=== PATIENT | male | born 1940 | race Caucasian/White ===

== ENCOUNTER → 2019-08-30 | Emergency (ER) | payer OTHER ==
[~2019-08-30] VITALS: Ht 172.7 cm; Wt 71.7 kg
[~2019-08-30] MED LIST: SODIUM CHLORIDE 0.9% 1,000 ML IV ONE
[2019-08-30 07:22] LABS: Basophils # (auto) 0 10 ^3/uL (0-0.2); Basophils % (auto) 0.4 % (0.0-2.0); Eosinophils # (auto) 0 10 ^3/uL (0-0.8); Eosinophils % (auto) 0.5 % (0.0-7.0); Hematocrit 40.5 % (41.0-53.0); Lymphocytes # (auto) 0.7 10 ^3/uL (0.4-5.4)
[2019-08-30 07:24] LABS: Lymphocytes % (auto) 9.2 % (10.0-50.0); Mean Corpuscular Hemoglobin 34.9 pg (28.0-32.0); Mean Corpuscular Hgb Conc. 34.6 g/dL (32.0-36.0); Mean Corpuscular Volume 101.1 fL (80.0-100.0); Monocytes # (auto) 0.5 10 ^3/uL (0-1.3); Monocytes % (auto) 6.5 % (0.0-12.0); Neutrophils # (auto) 6.7 10 ^3/uL (1.6-8.6); Neutrophils % (auto) 83.4 % (37.0-80.0); Nucleated Red Blood Cells % 0.1 %; Platelet Count (auto) 172 10^3/uL (140-450); Red Cell Distribution Width 13.5 % (11.8-14.3)
[2019-08-30 07:37] LABS: INR 1.17 (0.9-1.15); Partial Thromboplastin Time 29.9 sec (23.64-32.05)
[2019-08-30 07:41] LABS: Alanine Aminotransferase 22 U/L (16-61); Albumin 3.5 g/dL (3.4-5.0); Anion Gap 10 (5-15); Aspartate Aminotransferase 17 U/L (15-37); BUN/Creatinine Ratio 20.9; Blood Urea Nitrogen 19 mg/dL (7-18); Calcium 8.7 mg/dL (8.5-10.1); Carbon Dioxide 21 mmol/L (21-32); Chloride 102 mmol/L (98-107); GFR African American 104 mL/min; GFR Non-African American 86 mL/min; Glucose 119 mg/dL (74-106); Sodium 133 mmol/L (136-145)
[2019-08-30 07:45] LABS: Alkaline Phosphatase 94 U/L (45-117); Bilirubin, Total 1.2 mg/dL (0.2-1.0); Total Protein 6.3 g/dL (6.4-8.2)
[2019-08-30 08:52] LABS: Urine WBC None Seen /hpf (0 - 3)
[2019-08-30 08:55] LABS: Urine Bacteria NONE SEEN /hpf (None Seen); Urine Blood Negative /uL (Negative); Urine Mucus FEW (None Seen); Urine Specific Gravity 1.009 (1.001-1.035)
[2019-08-30 09:08] VITALS: BP 150/84
== END | disposition home or self-care (01) ==
LOC: EDBD 06:42 → ER 06:42
DX: S06.5X1A Traumatic subdural hemorrhage with loss of consciousness of 30 minutes or less, initial encounter (principal); R60.0 Localized edema; D75.89 Other specified diseases of blood and blood-forming organs; R53.1 Weakness; R55 Syncope and collapse; X58.XXXA Exposure to other specified factors, initial encounter; Y93.89 Activity, other specified; Y92.89 Other specified places as the place of occurrence of the external cause; Y99.8 Other external cause status
CPT/HCPCS: 36415; 70450; 71045; 80053; 81001; 83605; 83735; 83880; 84484; 85025; 85610; 85730; 86850; 86900; 86901; 96360; 99285; J7030

== ENCOUNTER 2019-09-23 07:49 | Inpatient (IN) | payer OTHER ==
[~2019-09-23] VITALS: Ht 172.7 cm; Wt 76.9 kg
[2019-09-23] MEDS: SODIUM CHLORIDE 0.9% 1,000 ML IV SCH ×2 (00:15→15:05)
[2019-09-23 08:35] LABS: Basophils # (auto) 0.1 10 ^3/uL (0-0.2); Eosinophils # (auto) 0 10 ^3/uL (0-0.8); Hemoglobin 14.5 g/dL (13.5-17.5); Lymphocytes # (auto) 0.2 10 ^3/uL (0.4-5.4); Mean Corpuscular Hgb Conc. 33.1 g/dL (32.0-36.0); Monocytes # (auto) 0.9 10 ^3/uL (0-1.3); Red Blood Cells 4.28 10^6/uL (4.5-5.90)
[2019-09-23 08:37] LABS: Basophils % (auto) 0.5 % (0.0-2.0); Hematocrit 43.7 % (41.0-53.0); Lymphocytes % (auto) 1.1 % (10.0-50.0); Mean Corpuscular Hemoglobin 33.8 pg (28.0-32.0); Mean Corpuscular Volume 102.1 fL (80.0-100.0); Neutrophils # (auto) 20.7 10 ^3/uL (1.6-8.6); Neutrophils % (auto) 94.4 % (37.0-80.0); Platelet Count (auto) 131 10^3/uL (140-450)
[2019-09-23] MEDS ORDERED: SODIUM CHLORIDE 0.9% 1,000 ML IV ONE ×5 (08:45→17:00)
[2019-09-23 08:49] LABS: Albumin 2.7 g/dL (3.4-5.0); Anion Gap 13 (5-15); Blood Urea Nitrogen 34 mg/dL (7-18); Calcium 8.9 mg/dL (8.5-10.1); Carbon Dioxide 18 mmol/L (21-32); Chloride 101 mmol/L (98-107); Glucose 124 mg/dL (74-106); Magnesium 2.4 mg/dL (1.6-2.6); Potassium 4.9 mmol/L (3.5-5.1); Sodium 132 mmol/L (136-145)
[2019-09-23 08:50] LABS: INR 1.21 (0.9-1.15); Partial Thromboplastin Time 31.8 sec (23.64-32.05)
[2019-09-23 08:55] LABS: Alanine Aminotransferase 23 U/L (16-61); Alkaline Phosphatase 125 U/L (45-117); Aspartate Aminotransferase 11 U/L (15-37); BUN/Creatinine Ratio 20.1; GFR African American 51 mL/min; GFR Non-African American 42 mL/min; Total Protein 6.1 g/dL (6.4-8.2)
[2019-09-23] MEDS ORDERED: cefTRIAXone 1GM/50ML D5W 50 ML IV ONE (10:15)
[2019-09-23 11:21] LABS: Lactic Acid w/Reflex 5.1 mmol/L (0.4-2.0)
[2019-09-23] MEDS ORDERED: SODIUM CHLORIDE 0.9% 2,150 ML IV ONE (11:45)
[2019-09-23 12:15] LABS: Urine Bacteria MANY /hpf (None Seen); Urine Blood 1+ /uL (Negative); Urine Mucus FEW (None Seen); Urine Specific Gravity 1.021 (1.001-1.035); Urine WBC 831 /hpf (0 - 3); Urine WBC Clumps PRESENT /hpf (None Seen)
[2019-09-23] MEDS ORDERED: MORPHINE SULF INJ 2 MG/ML SYRINGE 1ML IV PRN (13:15)
[2019-09-23] MEDS ORDERED: NITROGLYCERIN 0.4 MG SL TAB SL PRN (13:15)
[2019-09-23] MEDS ORDERED: ONDANSETRON HCL 4 MG/2 ML VIAL IV PRN (14:00)
[2019-09-23] MEDS ORDERED: LORazepam 0.5 MG TAB PO PRN (14:00)
[2019-09-23] MEDS ORDERED: PIPERACILLIN-TAZOB 3.375GM 100 ML IV ONE (14:00)
[2019-09-23] MEDS ORDERED: traMADol HCL 50 MG TAB PO PRN (14:00)
[2019-09-23 14:27] LABS: CRP High Sensitivity 13.2 mg/dL (< 0.3)
[2019-09-23] MEDS: ACETAMINOPHEN 500 MG TAB PO PRN ×2 (14:27→20:46)
[2019-09-23] MEDS ORDERED: NOREPINEPHRINE 8 MG/250ML KIT 250 ML IV SCH (15:46)
[2019-09-23] MEDS ORDERED: NOREPINEPHRINE 8 MG/250ML KIT 250 ML IV ONE (15:54)
[2019-09-23] MEDS: NOREPINEPHRINE 8 MG/250ML KIT 250 ML IV SCH (16:11)
[2019-09-23] MEDS ORDERED: ACETAMINOPHEN 500 MG TAB PO ONE (17:00)
[2019-09-23] MEDS: PIPERACILLIN-TAZOB 3.375GM 100 ML IV SCH (20:45)
[2019-09-24] MEDS: PIPERACILLIN-TAZOB 3.375GM 100 ML IV SCH ×4 (02:24→19:40)
[2019-09-24] MEDS: ACETAMINOPHEN 500 MG TAB PO PRN ×2 (02:59→10:15)
[2019-09-24 05:52] LABS: Eosinophils # (auto) 0 10 ^3/uL (0-0.8); Eosinophils % (auto) 0.1 % (0.0-7.0); Lymphocytes # (auto) 0.1 10 ^3/uL (0.4-5.4); Monocytes # (auto) 0.5 10 ^3/uL (0-1.3); Platelet Count (auto) 70 10^3/uL (140-450); White Blood Cell 13.4 10^3/uL (4.4-10.8)
[2019-09-24 05:54] LABS: Basophils # (auto) 0 10 ^3/uL (0-0.2); Basophils % (auto) 0.3 % (0.0-2.0); Hematocrit 35.1 % (41.0-53.0); Hemoglobin 11.8 g/dL (13.5-17.5); Mean Corpuscular Hemoglobin 34.3 pg (28.0-32.0); Mean Corpuscular Hgb Conc. 33.6 g/dL (32.0-36.0); Mean Corpuscular Volume 102.2 fL (80.0-100.0); Monocytes % (auto) 3.5 % (0.0-12.0); Neutrophils # (auto) 12.7 10 ^3/uL (1.6-8.6); Neutrophils % (auto) 95.1 % (37.0-80.0); Red Blood Cells 3.43 10^6/uL (4.5-5.90)
[2019-09-24 06:19] LABS: Albumin 1.8 g/dL (3.4-5.0); Calcium 7.3 mg/dL (8.5-10.1); Potassium 3.8 mmol/L (3.5-5.1)
[2019-09-24 06:22] LABS: Bilirubin, Total 0.6 mg/dL (0.2-1.0); Total Protein 4.5 g/dL (6.4-8.2)
[2019-09-24] MEDS: NOREPINEPHRINE 8 MG/250ML KIT 250 ML IV SCH ×2 (09:14→19:00)
[2019-09-24] MEDS: SODIUM CHLORIDE 0.9% 1,000 ML IV SCH (10:08)
[2019-09-24] MEDS ORDERED: PANTOPRAZOLE 40 MG TAB PO ONE (13:45)
[2019-09-24] MEDS ORDERED: ALUM & MAG HYDROX-SIMETH LIQ(MAALOX) 30 ML PO ONE (13:45)
[2019-09-24] MEDS: PANTOPRAZOLE 40 MG TAB PO SCH (14:15)
[2019-09-24] MEDS ORDERED: SODIUM CHLORIDE 0.9% 1,000 ML IV ONE (14:15)
[2019-09-24] MEDS ORDERED: METO25TA5 PO (15:24)
[2019-09-24] MEDS ORDERED: LEVE100012 PO (15:24)
[2019-09-24] MEDS ORDERED: CALCTAB25 PO (15:24)
[2019-09-24] MEDS ORDERED: TRAM50TA2 PO (15:24)
[2019-09-24] MEDS ORDERED: ASPI-231 PO (15:24)
[2019-09-24] MEDS ORDERED: CHOL20007 PO (15:24)
[2019-09-24] MEDS ORDERED: DOCU100T15 PO (15:24)
[2019-09-24] MEDS ORDERED: ATOR10TA52 PO (15:24)
[2019-09-24 18:28] LABS: Basophils # (auto) 0 10 ^3/uL (0-0.2); Eosinophils # (auto) 0.1 10 ^3/uL (0-0.8); Lymphocytes # (auto) 0.1 10 ^3/uL (0.4-5.4); Monocytes # (auto) 0.3 10 ^3/uL (0-1.3); Monocytes % (auto) 4.2 % (0.0-12.0)
[2019-09-24 18:30] LABS: Basophils % (auto) 0.1 % (0.0-2.0); Eosinophils % (auto) 1.3 % (0.0-7.0); Hematocrit 36.1 % (41.0-53.0); Hemoglobin 12.1 g/dL (13.5-17.5); Mean Corpuscular Hemoglobin 34.2 pg (28.0-32.0); Mean Corpuscular Hgb Conc. 33.6 g/dL (32.0-36.0); Mean Corpuscular Volume 101.8 fL (80.0-100.0); Neutrophils # (auto) 7.5 10 ^3/uL (1.6-8.6); Neutrophils % (auto) 93.4 % (37.0-80.0); Nucleated Red Blood Cells % 0.1 %; Platelet Count (auto) 63 10^3/uL (140-450); Red Blood Cells 3.54 10^6/uL (4.5-5.90); Red Cell Distribution Width 13.2 % (11.8-14.3); White Blood Cell 8.1 10^3/uL (4.4-10.8)
[2019-09-24 18:44] LABS: INR 1.22 (0.9-1.15)
[2019-09-24 18:55] LABS: Albumin 1.8 g/dL (3.4-5.0); Calcium 7.4 mg/dL (8.5-10.1); Magnesium 2.2 mg/dL (1.6-2.6); Potassium 4.2 mmol/L (3.5-5.1)
[2019-09-24 19:00] LABS: BUN/Creatinine Ratio 29.2; Bilirubin, Direct 0.4 mg/dL (0-0.2); Bilirubin, Total 0.7 mg/dL (0.2-1.0); Total Protein 4.4 g/dL (6.4-8.2)
[2019-09-24] MEDS: levETIRAcetam 500 MG TAB PO SCH (22:27)
[2019-09-24] MEDS: HYDROcodone-ACET 5/325MG TAB PO PRN (22:27)
[2019-09-25] MEDS: SODIUM CHLORIDE 0.9% 1,000 ML IV SCH ×2 (00:15→07:30)
[2019-09-25] MEDS: PIPERACILLIN-TAZOB 3.375GM 100 ML IV SCH ×4 (02:02→20:02)
[2019-09-25 06:55] LABS: Basophils # (auto) 0 10 ^3/uL (0-0.2); Eosinophils # (auto) 0 10 ^3/uL (0-0.8); Lymphocytes # (auto) 0.1 10 ^3/uL (0.4-5.4); Monocytes # (auto) 0.3 10 ^3/uL (0-1.3); Neutrophils # (auto) 6.2 10 ^3/uL (1.6-8.6); Neutrophils % (auto) 92.2 % (37.0-80.0); Red Cell Distribution Width 13.1 % (11.8-14.3); White Blood Cell 6.7 10^3/uL (4.4-10.8)
[2019-09-25 06:57] LABS: Basophils % (auto) 0.1 % (0.0-2.0); Eosinophils % (auto) 0.6 % (0.0-7.0); Hematocrit 35.6 % (41.0-53.0); Hemoglobin 12.2 g/dL (13.5-17.5); Lymphocytes % (auto) 2.1 % (10.0-50.0); Mean Corpuscular Hemoglobin 34.6 pg (28.0-32.0); Mean Corpuscular Hgb Conc. 34.1 g/dL (32.0-36.0); Mean Corpuscular Volume 101.3 fL (80.0-100.0); Nucleated Red Blood Cells % 0.1 %; Platelet Count (auto) 61 10^3/uL (140-450); Red Blood Cells 3.51 10^6/uL (4.5-5.90)
[2019-09-25 07:13] LABS: Albumin 1.7 g/dL (3.4-5.0); Calcium 7.4 mg/dL (8.5-10.1); Magnesium 2.5 mg/dL (1.6-2.6); Potassium 4.6 mmol/L (3.5-5.1)
[2019-09-25 07:16] LABS: INR 1.13 (0.9-1.15); Partial Thromboplastin Time 33.9 sec (23.64-32.05)
[2019-09-25 07:18] LABS: BUN/Creatinine Ratio 32.7; Bilirubin, Direct 0.3 mg/dL (0-0.2); Bilirubin, Total 0.6 mg/dL (0.2-1.0); Total Protein 4.4 g/dL (6.4-8.2)
[2019-09-25] MEDS: PANTOPRAZOLE 40 MG TAB PO SCH (09:21)
[2019-09-25] MEDS: levETIRAcetam 500 MG TAB PO SCH ×2 (09:21→20:59)
--- NOTE | 2019-09-25 12:38 | NUR ---
Telemetry admit from ER NILAY MARIE admitted to Telemetry unit after SBAR received. Patient oriented to LISETH quiros RN, unit, room, bed, and unit policies regarding patient care and visiting hours. Patient now on continuous telemetry monitoring, tele box # 39 and telemetry reading on arrival to unit is afib in the 80's. Patient weighed by bedscale and encouraged to call if they need something. All questions and concerns addressed, patient verbalized understanding.
[2019-09-25 13:28] VITALS: BP 119/66
[2019-09-25] MEDS: HYDROcodone-ACET 5/325MG TAB PO PRN (15:32)
[2019-09-25 16:38] VITALS: BP 116/69
--- NOTE | 2019-09-25 18:40 | NUR ---
Physician at bedside Dr. Saez at bedside. Update him on patient status. No new orders received at this time.
--- NOTE | 2019-09-25 19:46 | NUR ---
End of shift note endorsed care to NOC RN. No signs and symptoms of distress noted.
[2019-09-25] MEDS ORDERED: CIP500T PO (20:49)
[2019-09-25] MEDS: CIPROFLOXACIN HCL 500 MG TAB PO SCH (20:59)
[2019-09-25 22:00] VITALS: BP 106/65
[2019-09-26 05:43] VITALS: BP 103/68
--- NOTE | 2019-09-26 07:45 | NUR ---
OPENING NOTE Assumed care of patient from NOC RN Roro. Patient is AOx3 he is unable to state time and month. No signs and symptoms of distress noted. Updated patient on plan of care and patient verbalized understanding. Bed is in lowest locked position and side rails are up x3, bed alarm is on, and call light is with in reach. I will continue to monitor Q1hr and PRN.
--- NOTE | 2019-09-26 08:05 | NUR ---
Patient refusing removal of bedpan Patient placed on bed esquivel at 0750, when reassessed patient stated "i want to stay on, i still haven't gone. I will tell you when I'm done". Educated patient on risks of tissue damage with prolonged use of bed esquivel. I will reassess patient.
--- NOTE | 2019-09-26 08:18 | NUR ---
Patient requested to be removed from bedpan, assisted patient with hygiene. I will continue to monitor q1hr and PRN.
[2019-09-26 08:40] VITALS: BP 120/76
[2019-09-26] MEDS: PANTOPRAZOLE 40 MG TAB PO SCH (10:11)
[2019-09-26] MEDS: levETIRAcetam 500 MG TAB PO SCH (10:11)
[2019-09-26] MEDS: CIPROFLOXACIN HCL 500 MG TAB PO SCH (10:12)
[2019-09-26] MEDS: HYDROcodone-ACET 5/325MG TAB PO PRN (10:12)
--- NOTE | 2019-09-26 11:52 | NUR ---
Assessment Patient is a 79-year-old male who is alert and oriented. Prior to admission patient lived with his daughter Emely and function independently. Patient informed me he can care for his own ADLs. Patient has a walker and cane for home use. Per patient he will return home to his prior living arrangements post discharge and family will transport him home. Advised patient there is a social service consult for home health safety evaluation and physical therapy. Informed patient clinical information will be faxed to [facility]. Informed patient he has a right to participate in all discharge planning. Patient verbalized understanding and agreed to discharge plan home. Per Keiko with [facility]:) patient has been accepted and service to start within 24-48hrs upon d/c day. Addendum: 09/26/19 at 1152 by MARJAN VALLECILLO SS Amended: Links added.
[2019-09-26 12:46] VITALS: BP 112/77
--- NOTE | 2019-09-26 15:42 | NUR ---
Est [employer] needs 2336-6149 kcal (25-30 kcal/kg BW) Est protein needs 62-77g (0.8-1g/kg BW) Will reassess prn. Addendum: 09/26/19 at [address] Amended: Links added.
--- NOTE | 2019-09-26 16:02 | NUR ---
Paged Paged Dr. Saez Regarding Discharge.
--- NOTE | 2019-09-26 16:10 | NUR ---
Received call back from Dr. evangelista.
[2019-09-26 16:46] VITALS: BP 113/69
--- NOTE | 2019-09-26 19:20 | NUR ---
end of shift note endorsed care to NOC SHRAVAN Ibarra. No s/s of distress noted.
--- NOTE | 2019-09-26 20:35 | NUR ---
Discharge instructions given as ordered. Encourage to follow up with PMD as instructed. All questions and concerns addressed. Patient verbalized understanding. Medication reconciliation form completed and copy given to patient. IV removed with catheter intact, pressure dressing applied, man catheter removed. Telemetry unit returned to [facility]. Patient taken to vehicle via wheelchair with all personal belongings, accompanied by staff. No distress noted at time of departure.
== END 2019-09-26 20:26 | disposition home health service (06) | DRG 871 ==
LOC: EDBD 07:49 → EDUNIT# 07:49 → ER 07:49 → TELE-CENTR 07:50 → TELE 22:06 → TELE-CENTR 09-25 12:38
PROVIDERS: ADMIT Internal Medicine; ATTEND Internal Medicine
DX: A41.51 Sepsis due to Escherichia coli [E. coli] (principal); R65.21 Severe sepsis with septic shock; G93.41 Metabolic encephalopathy; N39.0 Urinary tract infection, site not specified; E44.0 Moderate protein-calorie malnutrition; N17.9 Acute kidney failure, unspecified; E87.1 Hypo-osmolality and hyponatremia; I48.20 Chronic atrial fibrillation, unspecified; G81.94 Hemiplegia, unspecified affecting left nondominant side; N12 Tubulo-interstitial nephritis, not specified as acute or chronic; E11.21 Type 2 diabetes mellitus with diabetic nephropathy; F17.200 Nicotine dependence, unspecified, uncomplicated; E86.0 Dehydration; K21.9 Gastro-esophageal reflux disease without esophagitis; I10 Essential (primary) hypertension; R29.6 Repeated falls; H53.462 Homonymous bilateral field defects, left side; E78.5 Hyperlipidemia, unspecified; Z90.49 Acquired absence of other specified parts of digestive tract
CPT/HCPCS: 36415; 51702; 70450; 70551; 71045; 74176; 80048; 80053; 80076; 81001; 82550; 83605; 83735; 84443; 84484; 85025; 85610; 85652; 85730; 86141; 87040; 87077; 87086; 87088; 87186; 93005; 95819; 96361; 96365; 97116; 97163; 97530; G0378; J0696; J2405; J2543

== ENCOUNTER 2024-02-26 08:32 | Inpatient (IN) | payer OTHER ==
[~2024-02-26] VITALS: Ht 165.1 cm; Wt 61.4 kg
[~2024-02-26 08:32] MED LIST changes: +ASPI1TAB20 PO; +ATOR10TA52 PO; +CALCTAB25 PO; +CHOL20007 PO; +CIP500T PO; +DOCU100T15 PO; +LEVE100012 PO; +METO25TA5 PO; -SODIUM CHLORIDE 0.9% 1,000 ML IV ONE; +TRAM50TA2 PO
[2024-02-26 09:00] VITALS: PULSE 77; RESP 14; O2SAT 97
[2024-02-26 09:12] LABS: Basophils # (auto) 0 10 ^3/uL (0-0.2); Basophils % (auto) 0.1 % (0.0-2.0); Eosinophils # (auto) 0 10 ^3/uL (0-0.8); Lymphocytes # (auto) 0.6 10 ^3/uL (0.4-5.4); Neutrophils # (auto) 11.4 10 ^3/uL (1.6-8.6)
[2024-02-26 09:14] LABS: Hematocrit 36.8 % (41.0-53.0); Hemoglobin 12.4 g/dL (13.5-17.5); Lymphocytes % (auto) 4.3 % (10.0-50.0); Mean Corpuscular Hemoglobin 34.2 pg (28.0-32.0); Mean Corpuscular Hgb Conc. 33.7 g/dL (32.0-36.0); Mean Corpuscular Volume 101.4 fL (80.0-100.0); Monocytes % (auto) 7.5 % (0.0-12.0); Neutrophils % (auto) 88.1 % (37.0-80.0); Nucleated Red Blood Cells % 0.1 %; Platelet Count (auto) 142 10^3/uL (140-450); Red Blood Cells 3.63 10^6/uL (4.5-5.90); Red Cell Distribution Width 14.9 % (11.8-14.3); White Blood Cell 12.9 10^3/uL (4.4-10.8)
[2024-02-26 09:37] LABS: Chloride 107 mmol/L (98-107); Potassium 4.2 mmol/L (3.5-5.1); Sodium 140 mmol/L (136-145)
[2024-02-26 09:38] LABS: Anion Gap 10 (5-15); Calcium 8.9 mg/dL (8.7-10.4); Carbon Dioxide 23 mmol/L (20-31)
[2024-02-26 09:43] LABS: BUN/Creatinine Ratio 38.8 (10.0-20.0); Blood Urea Nitrogen 64 mg/dL (9-23); Glucose 117 mg/dL (74-106)
[2024-02-26] MEDS: FUROSEMIDE 20 MG/2 ML VIAL IV ONE (10:44)
[2024-02-26] MEDS: cefTRIAXone 1GM/50ML D5W 50 ML IV ONE ×2 (11:46→11:47)
[2024-02-26] MEDS: AZITHROMYCIN 500MG/ 250ML 250 ML IV ONE (11:57)
[2024-02-26 19:20] VITALS: PULSE 87; RESP 19; O2SAT 95
[2024-02-26] MEDS ORDERED: DOCUSATE SOD 100 MG CAP PO PRN (20:15)
[2024-02-26] MEDS: ATORVASTATIN 20 MG TAB PO SCH (21:55)
[2024-02-26] MEDS: levETIRAcetam 500 MG TAB PO SCH (21:55)
[2024-02-27] VITALS (7 sets, daily range): BP systolic 93–114; BP diastolic 61–68; PULSE 65–101; RESP 16–20; TEMP 97.7–97.9; O2SAT 90–100
[2024-02-27] MEDS ORDERED: ACETAMINOPHEN 325 MG TAB PO PRN (02:45)
[2024-02-27] MEDS ORDERED: ONDANSETRON HCL 4 MG/2 ML VIAL IV PRN (02:45)
[2024-02-27] MEDS ORDERED: NITROGLYCERIN 0.4 MG SL TAB SL PRN (02:45)
[2024-02-27] MEDS ORDERED: MORPHINE SULFATE INJ 2 MG/ml SYRG IV PRN (02:45)
[2024-02-27] MEDS ORDERED: DOCUSATE SOD 100 MG CAP PO PRN (02:45)
[2024-02-27] MEDS: SODIUM CHLOR 0.9% PF (SALINE LOCK) 10ML VIAL/SYR IV SCH (05:50)
[2024-02-27] MEDS: HYDROcodone-ACET 5/325MG TAB PO PRN (05:55)
[2024-02-27] MEDS: ASPirin 81 mg TAB PO SCH (10:15)
[2024-02-27] MEDS: AZITHROMYCIN 500MG/ 250ML 250 ML IV SCH (10:16)
[2024-02-27] MEDS: cefTRIAXone 1GM/50ML D5W 50 ML IV SCH (10:20)
[2024-02-27] MEDS: SODIUM CHLORIDE 0.9% 1,000 ML IV ONE (21:08)
[2024-02-27 23:00] LABS: Sodium Urine < 10 mmol/L (40-220)
[2024-02-27 23:08] LABS: Creatinine, Urine 63.02 mg/dL (30.0-125.0)
[2024-02-28] VITALS (8 sets, daily range): BP systolic 94–116; BP diastolic 66–72; PULSE 64–91; RESP 18–20; TEMP 97.5–98.1; O2SAT 95–100
[2024-02-28 07:07] LABS: Basophils # (auto) 0 10 ^3/uL (0-0.2); Eosinophils # (auto) 0.1 10 ^3/uL (0-0.8); Platelet Count (auto) 92 10^3/uL (140-450)
[2024-02-28 07:10] LABS: Basophils % (auto) 0.2 % (0.0-2.0); Eosinophils % (auto) 2.3 % (0.0-7.0); Hematocrit 32.4 % (41.0-53.0); Hemoglobin 11.3 g/dL (13.5-17.5); Lymphocytes # (auto) 0.7 10 ^3/uL (0.4-5.4); Mean Corpuscular Hemoglobin 35.6 pg (28.0-32.0); Mean Corpuscular Hgb Conc. 34.9 g/dL (32.0-36.0); Monocytes # (auto) 0.5 10 ^3/uL (0-1.3); Neutrophils # (auto) 3.3 10 ^3/uL (1.6-8.6); Neutrophils % (auto) 71.5 % (37.0-80.0); Nucleated Red Blood Cells % 0.1 %; Red Blood Cells 3.17 10^6/uL (4.5-5.90); Red Cell Distribution Width 15.3 % (11.8-14.3); White Blood Cell 4.6 10^3/uL (4.4-10.8)
[2024-02-28 07:27] LABS: Alanine Aminotransferase 33 U/L (7-40); Alkaline Phosphatase 92 U/L (46-116); Anion Gap 4 (5-15); BUN/Creatinine Ratio 45.7 (10.0-20.0); Calcium 8.1 mg/dL (8.7-10.4); Carbon Dioxide 26 mmol/L (20-31); Chloride 111 mmol/L (98-107); Glucose 92 mg/dL (74-106); Potassium 3.2 mmol/L (3.5-5.1); Sodium 141 mmol/L (136-145)
[2024-02-28 07:29] LABS: Albumin 2.5 g/dL (3.2-4.8); Aspartate Aminotransferase 38 U/L (13-40); Bilirubin, Total 1.2 mg/dL (0.2-1.0); Creatine Kinase IFCC 266 U/L (46-171); Total Protein 3.8 g/dL (5.7-8.2)
[2024-02-28 07:30] LABS: Blood Urea Nitrogen 42 mg/dL (9-23)
[2024-02-28 10:47] LABS: Magnesium 2.3 mg/dL (1.6-2.6)
[2024-02-28 10:49] LABS: Phosphorus 2.8 mg/dL (2.4-5.1)
[2024-02-28 13:28] LABS: Urine Bacteria FEW /hpf (None Seen); Urine Blood Negative /uL (Negative); Urine Clarity Clear (Clear); Urine Color Yellow (Yellow); Urine Protein, UAD Negative (Negative); Urine Specific Gravity 1.019 (1.001-1.035); Urine Urobilinogen Normal (Negative); Urine WBC <1 /hpf (0 - 3)
[2024-02-28 13:35] LABS: Amphetamine Screen, Urine Neg (NEGATIVE); Barbiturate Scree,Urine Neg (NEGATIVE); Benzodiazephine Screen, Urine Neg (NEGATIVE); Cocaine Screen, Urine Neg (NEGATIVE); Opiate Scree,Urine Neg (NEGATIVE)
[2024-02-28 13:36] LABS: Cannabinoid Screen, Urine Neg (NEGATIVE); Creatinine, Urine 62.43 mg/dL (30.0-125.0); Phencyclidine Screen, Urine Neg (NEGATIVE); Urine Protein/Creatinine Ratio 0.29
[2024-02-28] MEDS ORDERED: FINA5TAB4 PO (16:11)
[2024-02-28] MEDS ORDERED: FURO20TA3 PO (16:11)
[2024-02-28] MEDS ORDERED: PANT40T PO (16:11)
[2024-02-28] MEDS ORDERED: POTA-215 PO (16:11)
[2024-02-28] MEDS ORDERED: CYAN1TAB11 PO (16:11)
[2024-02-29] VITALS (7 sets, daily range): BP systolic 93–105; BP diastolic 57–75; PULSE 74–89; RESP 17–20; TEMP 97.9–98.9; O2SAT 94–97
[2024-02-29 07:50] LABS: Basophils # (auto) 0 10 ^3/uL (0-0.2); Basophils % (auto) 0.3 % (0.0-2.0); Eosinophils # (auto) 0.2 10 ^3/uL (0-0.8); Lymphocytes # (auto) 0.7 10 ^3/uL (0.4-5.4); Mean Corpuscular Hemoglobin 35.7 pg (28.0-32.0); Red Cell Distribution Width 15.1 % (11.8-14.3); White Blood Cell 4.5 10^3/uL (4.4-10.8)
[2024-02-29 07:52] LABS: Eosinophils % (auto) 4.9 % (0.0-7.0); Hematocrit 31.3 % (41.0-53.0); Lymphocytes % (auto) 16.7 % (10.0-50.0); Mean Corpuscular Hgb Conc. 35.1 g/dL (32.0-36.0); Mean Corpuscular Volume 101.7 fL (80.0-100.0); Monocytes # (auto) 0.4 10 ^3/uL (0-1.3); Neutrophils # (auto) 3.1 10 ^3/uL (1.6-8.6); Neutrophils % (auto) 68.1 % (37.0-80.0); Platelet Count (auto) 90 10^3/uL (140-450); Red Blood Cells 3.07 10^6/uL (4.5-5.90)
[2024-02-29 08:51] LABS: Folate (Folic Acid) 7.69 ng/mL (>5.38)
[2024-02-29 08:52] LABS: Chloride 110 mmol/L (98-107); Potassium 3.4 mmol/L (3.5-5.1); Sodium 140 mmol/L (136-145)
[2024-02-29 08:54] LABS: Anion Gap 5 (5-15); Calcium 8.2 mg/dL (8.7-10.4); Carbon Dioxide 25 mmol/L (20-31)
[2024-02-29 08:59] LABS: Glucose 93 mg/dL (74-106)
[2024-02-29 09:03] LABS: Blood Urea Nitrogen 31 mg/dL (9-23)
[2024-02-29] MEDS: MIDODRINE HCL 10 MG TAB PO SCH (20:22)
[2024-03-01] VITALS (8 sets, daily range): BP systolic 81–117; BP diastolic 51–84; PULSE 52–89; RESP 18; TEMP 97.8–99.5; O2SAT 68–98
[2024-03-02] VITALS (8 sets, daily range): BP systolic 72–116; BP diastolic 51–79; PULSE 60–93; RESP 17–21; TEMP 97.2–97.8; O2SAT 94–100
[2024-03-02] MEDS ORDERED: MID10T PO (16:31)
[2024-03-02] MEDS ORDERED: METO25TA93 PO (16:47)
== END 2024-03-02 20:58 | DRG 177 ==
LOC: ER 08:32 → EDBD 08:32 → TELE 02-27 02:44 → TELE-WESTW 02-27 02:51 → WEST WING 03-02 06:58
PROVIDERS: ADMIT Nurse Practitioner Family; ATTEND Student in an Organized Health Care Education/Training Program
DX: J15.69 Pneumonia due to other Gram-negative bacteria (principal); N17.0 Acute kidney failure with tubular necrosis; I48.20 Chronic atrial fibrillation, unspecified; M62.82 Rhabdomyolysis; J15.9 Unspecified bacterial pneumonia; I95.1 Orthostatic hypotension; E86.0 Dehydration; N18.32 Chronic kidney disease, stage 3b; I12.9 Hypertensive chronic kidney disease with stage 1 through stage 4 chronic kidney disease, or unspecified chronic kidney disease; S09.8XXA Other specified injuries of head, initial encounter; E86.9 Volume depletion, unspecified; D75.89 Other specified diseases of blood and blood-forming organs; E53.8 Deficiency of other specified B group vitamins; D69.6 Thrombocytopenia, unspecified; E78.5 Hyperlipidemia, unspecified; Z90.49 Acquired absence of other specified parts of digestive tract; W18.39XA Other fall on same level, initial encounter; Y93.89 Activity, other specified; Y92.89 Other specified places as the place of occurrence of the external cause; Y99.8 Other external cause status
CPT/HCPCS: 36415; 70450; 71045; 73070; 76775; 80048; 80053; 80307; 81001; 82306; 82550; 82570; 82607; 82746; 83735; 83970; 84100; 84156; 84300; 84443; 85025; 93005; 96365; 96368; 96375; 97116; 97163; 97530; 99291; G0378